=== PATIENT | female | born 1995 | race Caucasian/White ===

== ENCOUNTER 2017-06-17 12:28 | Emergency (ER) | payer BC ==
[2017-06-17 14:21] LABS: Hematocrit 37 % (35-47); Hemoglobin 12.6 g/dl (12.0-16.0); Mean Corpuscular HGB Conc 34 g/dl (31-36); Mean Corpuscular Hemoglobin 29 pg (27-31); Mean Corpuscular Volume 85 fL (80-97); Mean Platelet Volume 8 um3 (7.4-10.4); Red Blood Count 4.32 10^6/ul (4.0-5.4); Red Cell Distribution Width 13 % (10.5-15)
[2017-06-17 14:37] LABS: ALT 14 U/L (7-52); AST 16 U/L (13-39); Alkaline Phosphatase 44 U/L (34-104); Anion Gap 7 mmol/L (2-11); BUN/Creatinine Ratio 17.6 (8-20); Blood Urea Nitrogen 12 mg/dL (6-24); C Reactive Protein 14.05 mg/L (< 5.00); CO2 Carbon Dioxide 25 mmol/L (22-32); Calcium 9.1 mg/dL (8.6-10.3); Chloride 102 mmol/L (101-111); EGFR African American 140.5 (>60); EGFR Non-African American 109.2 (>60); Globulin 3.2 g/dL (2-4); Glucose 100 mg/dL (70-100); Lipase 12 U/L (11.0-82.0); Potassium 4.2 mmol/L (3.5-5.0); Sodium 134 mmol/L (133-145); Total Protein 7.2 g/dL (6.4-8.9)
[2017-06-17 14:55] LABS: Urine Bilirubin Negative (Negative); Urine Glucose Negative (Negative); Urine Nitrite Negative (Negative)
--- NOTE | 2017-06-17 15:52 | RAD ---
HISTORY: Pelvic pain, right lower quadrant and right flank pain COMPARISONS: None TECHNIQUE: Multiple transverse and longitudinal ultrasound images were obtained of the pelvis using grayscale, color Doppler, and spectral Doppler imaging using the endovaginal transducer. FINDINGS: UTERUS: The uterus measures 7.2 x 3.1 x 4.8 cm. The uterus is heterogeneous. There is focal hypoechoic lesion suggestive of a subserosal fibroid measuring 2 x 1.2 x 1.4 cm in size along the anterior body. ENDOMETRIUM: The endometrial stripe is smooth. The endometrium measures 0.9 cm in thickness. CUL-DE-SAC: There is no free fluid within the cul-de-sac. RIGHT OVARY: The right ovary measures 4.6 x 3.1 x 3.9 cm. Multiple follicles are noted. There is a complex hypoechoic cyst, suggestive of a hemorrhagic cyst, measuring 3.8 x 2.6 x 3.5 cm in size. Normal arterial and venous waveforms are identifiable within the ovary on spectral Doppler imaging. LEFT OVARY: The left ovary measures 3.6 x 2.3 x 2 cm. Multiple follicles are noted. There is a hemorrhagic appearing cyst of the left ovary measuring 1.8 x 1.3 x 1.6 cm. Normal arterial and venous waveforms are identifiable within the ovary on spectral Doppler imaging. BLADDER: The bladder is not well visualized. OTHER: None IMPRESSION: 1. FIBROID UTERUS. 2. BILATERAL HEMORRHAGIC OVARIAN CYSTS, MEASURING UP TO 3.8 CM ON THE RIGHT AND 1.8 CM ON THE LEFT. RECOMMEND CONSIDERATION OF FOLLOW-UP IMAGING IN 6 WEEKS-12 WEEKS TO DOCUMENT RESOLUTION. 3. NO SONOGRAPHIC FEATURES OF TORSION. PLEASE NOTE THAT PARTIAL OR INTERMITTENT TORSION MAY BE SONOGRAPHICALLY NORMAL.
--- NOTE | 2017-06-17 15:53 | RAD ---
HISTORY: Right lower quadrant pain COMPARISONS: None TECHNIQUE: Multiple transverse and longitudinal ultrasound images were obtained of the right lower quadrant using grayscale and color Doppler imaging. FINDINGS: The appendix is not visualized. There is no free or loculated fluid within the right lower quadrant. IMPRESSION: THE APPENDIX IS NOT VISUALIZED. THERE IS NO FREE OR LOCULATED FLUID WITHIN THE RIGHT LOWER QUADRANT.
--- NOTE | 2017-06-17 15:54 | RAD ---
HISTORY: Right lower quadrant pain COMPARISONS: None TECHNIQUE: Multiple transverse and longitudinal ultrasound images were obtained of the right kidney using grayscale and color Doppler imaging. FINDINGS: RIGHT KIDNEY: The right kidney is normal in shape, size, contour, and echogenicity. There is no hydronephrosis or nephrolithiasis. The right kidney measures 10.9 x 4.1 x 5.1 cm. LEFT KIDNEY: No images are submitted of the left kidney BLADDER: No images are submitted of the bladder. AORTA AND IVC: No images are submitted of the vasculature. RETROPERITONEUM: Unremarkable. OTHER: None. IMPRESSION: NO RIGHT HYDRONEPHROSIS OR NEPHROLITHIASIS
--- NOTE | 2017-06-17 17:47 | ED ---
Pramod Garcia Thomas, scribed for Wei Mcmahon MD on 06/17/17 at 1347 . Abdominal Pain/Female - HPI Summary HPI Summary: The pt is a 22 y/o F referred from urgent care and c/o RLQ abd pain that is strongly aggravated by urination and has been present for the last 3-4 days. The pain is 2/10 at baseline and 6/10 when she urinates. When she urinates, the pain is described as sharp. The pain radiates to her back. The pain is mildly aggravated by walking and movement. The pain is alleviated by nothing. 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 Pt additionally c/o nausea and diarrhea. Pt denies fever, chills, vomiting, decreased appetite, vaginal bleeding, vaginal discharge, hematuria, dark urine, and foul urine. PMHx: HTN. PSHx: labrum repair in R hip. SHx: no smoking, occasional alcohol use, no illicit drug use. FHx: HTN. She is sexually active and was last sexually active a month ago. She is on oral contraceptives. She is a student at [employer]. She is from [place], [place]. - History of Current Complaint Chief Complaint: EDAbdPain Stated Complaint: ABD/BACK PAIN Time Seen by Provider: 06/17/17 13:33 Hx Obtained From: Patient Onset/Duration: Lasting Days - onset 3-4 days ago, Still Present Timing: Constant - pain is constant but strongly aggravated by urination Severity Currently: Mild Pain Intensity: 2 Pain Scale Used: 0-10 Numeric Location: Discrete At: RLQ Radiates: Yes Radiates to: Back Character: Sharp - pain is sharp when she urinates Aggravating Factor(s): Movement, Other: - Urination, walking Alleviating Factor(s): Nothing Associated Signs and Symptoms: Positive: Nausea, Diarrhea, Other: - RLQ abd pain ; NEGATIVE: chills, hematuria, dark urine, fould urine. Negative: Fever, Decreased Appetite, Vaginal Bleeding, Vaginal Discharge, Vomiting Allergies/Adverse Reactions: Allergies Allergy/AdvReac Type Severity Reaction Status Date / Time No Known Allergies Allergy Verified 06/17/17 13:26 Home Medications: Home Medications Tri-Estarylla 1 tab PO DAILY 06/17/17 [History Confirmed 06/17/17] PMH/Surg Hx/FS Hx/Imm Hx Previously Healthy: No Endocrine/Hematology History: Denies: Hx Diabetes Cardiovascular History: Reports: Hx Hypertension Denies: Hx Pacemaker/ICD Sensory History: Denies: Hx Hearing Aid Psychiatric History: Denies: Hx Panic Disorder - Surgical History Surgery Procedure, Year, and Place: Labrum repair in R hip Infectious Disease History: No Infectious Disease History: Denies: Traveled Outside the [place] in Last 30 Days - Family History Known Family History: Positive: Hypertension - Social History Alcohol Use: Occasionally Hx Substance Use: No Substance Use Type: Reports: None Hx Tobacco Use: No Smoking Status (MU): Never Smoked Tobacco Review of Systems Negative: Fever, Chills Positive: Abdominal Pain - RLQ abd pain onest 4 days ago, worse with urination and radiation to back, Nausea, Other - Diarrhea; NEGATIVE: decreased appetite. Negative: Vomiting Positive: dysuria, other - NEGATIVE: vaginal bleeding, dark urine, foul urine. Negative: discharge, hematuria All Other Systems Reviewed And Are Negative: Yes Physical Exam Triage Information Reviewed: Yes Vital Signs On Initial Exam: Initial Vitals Temp Pulse Resp BP Pulse Ox 97.9 F 100 20 157/74 100 06/17/17 12:45 06/17/17 12:45 06/17/17 12:45 06/17/17 12:45 06/17/17 12:45 Vital Signs Reviewed: Yes Appearance: Positive: Well-Appearing, No Pain Distress Skin: Positive: Warm, Skin Color Reflects Adequate Perfusion Head/Face: Positive: Normal Head/Face Inspection Eyes: Positive: EOMI, FER ENT: Positive: Normal ENT inspection Neck: Positive: Supple, Nontender Respiratory/Lung Sounds: Positive: Clear to Auscultation, Breath Sounds Present Cardiovascular: Positive: RRR. Negative: Murmur Abdomen Description: Positive: Other: - mild tenderness right lower quadrant Musculoskeletal: Positive: Strength/ROM Intact Neurological: Positive: Sensory/Motor Intact, Alert, Oriented to Person Place, Time, CN Intact II-III Psychiatric: Positive: Normal - Sara Coma Scale Coma Scale Total: 15 Diagnostics - Vital Signs Vital Signs Temp Pulse Resp BP Pulse Ox 06/17/17 12:45 97.9 F 100 20 157/74 100 - Laboratory Result Diagrams: 06/17/17 14:05 06/17/17 14:05 Lab Statement: Any lab studies that have been ordered have been reviewed, and results considered in the medical decision making process. - Additional Comments Diagnostic Additional Comments: Transvaginal US. Interpreted by radiologist. Impression: 1. FIBROID UTERUS. 2. BILATERAL HEMORRHAGIC OVARIAN CYSTS, MEASURING UP TO 3.8 CM ON THE RIGHT AND 1.8 CM ON THE LEFT. RECOMMEND CONSIDERATION OF FOLLOW-UP IMAGING IN 6 WEEKS-12 WEEKS TO DOCUMENT RESOLUTION. 3. NO SONOGRAPHIC FEATURES OF TORSION. PLEASE NOTE THAT PARTIAL OR INTERMITTENT TORSION MAY BE SONOGRAPHICALLY NORMAL. ED physician has reviewed this report and agrees. Renal US. Interpreted by radiologist. Impression: no right hydronephrosis or nephrolithiasis. ED physician has reviewed this report and agrees. Abdomen US. Interpreted by radiologist. Impression: the appendix is not visualized. There is no free air or loculated free fluid within the RLQ. ED physician has reviewed this report and agrees. Re-Evaluation - Re-Evaluation First Eval Re-Evaluation Time: 17:43 Change: Improved Comment: The patient is comfortable. she jumps up and down on her feet with no pain. Pelvic was done by Jeanine Chavis NP. Abdominal Pain Fem Course/Dx - Course Course Of Treatment: The pt is a 22 y/o F referred from [facility] c/o RLQ abd pain that is strongly aggravated by urination and has been present for the last 3-4 days. The pain radiates to her back. Pt additionally c/o nausea and diarrhea. Bloodwork shows Negative HCG. UA negative. Transvaginal US shows 1. FIBROID UTERUS. 2. BILATERAL HEMORRHAGIC OVARIAN CYSTS, MEASURING UP TO 3.8 CM ON THE RIGHT AND 1.8 CM ON THE LEFT. RECOMMEND CONSIDERATION OF FOLLOW-UP IMAGING IN 6 WEEKS-12 WEEKS TO DOCUMENT RESOLUTION. 3. NO SONOGRAPHIC FEATURES OF TORSION. PLEASE NOTE THAT PARTIAL OR INTERMITTENT TORSION MAY BE SONOGRAPHICALLY NORMAL. Renal US shows no right hydronephrosis or nephrolithiasis. Abdomen US shows the appendix is not visualized. There is no free air or loculated free fluid within the RLQ. ED physician has reviewed this report and agrees. The patient was discussed with Dr Durbin the [employer] REPRESENTATIVE doctor who recommends she continue taking her ocp as directed and that she follow up with her soon for repeat US to be sure the ovarian cysts have resolved. Patient is comfortable on DC. - Diagnoses Provider Diagnoses: Hemorrhagic cysts of both ovaries, Elevated blood pressure reading - Provider Notifications Discussed Care Of Patient With: Elli Durbin Time Discussed With Above Provider: 17:32 Instructed by Provider To: Other - I consulted with Dr. Durbin OBGYN, regarding follow-up going forward. Discharge - Discharge Plan Condition: Good Disposition: HOME Prescriptions: Ibuprofen TAB* [Motrin TAB* 600 MG] 600 mg PO Q6H PRN #20 tab PRN Reason: Pain Patient Education Materials: Ovarian Cyst (ED) Referrals: Elli Durbin MD [Medical Doctor] - [facility] [Provider Group] The documentation as recorded by the Pramod de dios Thomas accurately reflects the service I personally performed and the decisions made by me, Wei Mcmahon MD.
[2017-06-17 17:59] VITALS: BP 132/58
== END 2017-06-17 17:59 | disposition home or self-care (01) ==
LOC: ED 12:28
DX: N83.202 Unspecified ovarian cyst, left side (principal); N83.201 Unspecified ovarian cyst, right side; I10 Essential (primary) hypertension; D25.9 Leiomyoma of uterus, unspecified
CPT/HCPCS: 36415; 76705; 76775; 76830; 80053; 81003; 83605; 83690; 84702; 85025; 86140; 87040; 87480; 87491; 87510; 87591; 87661; 99283